=== PATIENT | female | born 1990 | race African-American/Black ===

== ENCOUNTER 2019-01-09 08:23 | Emergency (ER) | payer SELFPAY ==
[~2019-01-09] VITALS: Ht 175.3 cm; Wt 70.0 kg
[2019-01-09 09:33] LABS: HEMATOCRIT 37.4 % (37.0-47.0); HEMOGLOBIN 11.5 g/dl (12.0-16.0); IMMATURE GRANULOCYTES 0.2 % (0.0-5.0); MEAN CELL VOLUME 83.1 fL CALC (80.0-100.0); MEAN CORPUSCULAR HGB 25.6 pG CALC (26.0-32.0); MEAN CORPUSCULAR HGB CONC 30.7 g/L CALC (32.0-36.0); NEUT# 2.16 thou/uL (2.00-7.15); RED BLOOD COUNT 4.5 mill/uL (4.20-5.60); RED CELL DISTRI WIDTH 13.2 % (11.5-15.5)
[2019-01-09 09:41] LABS: URINE BILIRUBIN - DIPSTICK NEGATIVE (NEGATIVE); URINE BLOOD DIPSTICK LARGE (NEGATIVE); URINE COLOR YELLOW; URINE GLUCOSE - DIPSTICK NEGATIVE (NEGATIVE); URINE KETONE NEGATIVE (NEGATIVE); URINE LEUK ESTERASE NEGATIVE (NEGATIVE); URINE NITRITE - DIPSTICK NEGATIVE (Negative); URINE PROTEIN - DIPSTICK NEGATIVE (NEG-TRACE); URINE SPECIFIC GRAVITY 1.025
[2019-01-09 09:55] LABS: URINE RBC 25-50 RBC/hpf (0-5)
[2019-01-09 10:43] VITALS: BP 116/68
== END 2019-01-09 10:54 | disposition home or self-care (01) | DRG 392 ==
LOC: ED 08:23
PROVIDERS: Emergency Medicine
DX: K59.00 Constipation, unspecified (principal)

== ENCOUNTER 2021-06-09 22:40 | Emergency (ER) | payer BC, MEDICAID ==
[~2021-06-09] VITALS: Ht 175.3 cm; Wt 63.7 kg
[2021-06-10 01:34] VITALS: BP 118/73
== END 2021-06-10 01:40 | disposition home or self-care (01) | DRG 179 ==
LOC: ED 22:40
DX: U07.1 COVID-19 (principal); M41.9 Scoliosis, unspecified